=== PATIENT | male | born 1955 | race Caucasian/White ===

== ENCOUNTER 2018-03-26 09:26 | Day surgery (SDC) ==
[2018-03-26] MEDS: TETRACAINE 0.5% UNIT-DOSE OP PRN ×2 (10:20→10:44)
[2018-03-26] MEDS: BETADINE OPTH PREP OP PRN ×2 (10:20→10:44)
[2018-03-26] MEDS: CYCLOGYL 2% OPTH OP PRN ×3 (10:21→10:31)
[2018-03-26] MEDS ORDERED: DEX-MOXI-KETOR OPTH INJ 1/0.5/0.4 MG/ML IO ONE (10:30)
[2018-03-26] MEDS ORDERED: BRIMONIDINE TARTRATE 0.2% OPTH SOL OP PRN (10:30)
[2018-03-26] MEDS ORDERED: ZOFRAN 4 MG/2 ML IVP ONE (10:30)
[2018-03-26] MEDS ORDERED: LIDOCAINE 1% 20 ML MDV ID STA (10:30)
[2018-03-26] MEDS ORDERED: LIDOCAINE 1%/PHENYLEPHRINE 1.5% BSS (SURGERY) INTRAOCULA ONE (10:30)
[2018-03-26] MEDS ORDERED: BSS WITH EPINEPHRINE OP ONE (10:30)
[2018-03-26] MEDS ORDERED: SUBLIMAZE ONE (10:45)
[2018-03-26] MEDS ORDERED: ZOFRAN 4 MG/2 ML ONE (10:45)
[2018-03-26] MEDS ORDERED: VERSED ONE (10:45)
[2018-03-26 12:16] VITALS: TEMP 98.4
[2018-03-26 13:48] VITALS: BP 111/63
== END 2018-03-26 11:30 | disposition home or self-care (01) ==
LOC: SURG 09:26
PROVIDERS: ATTEND Ophthalmology
DX: H25.812 Combined forms of age-related cataract, left eye (principal)

== ENCOUNTER 2018-05-20 09:33 | Day surgery (SDC) ==
[~2018-05-20 09:33] MED LIST: BRIMONIDINE TARTRATE 0.2% OPTH SOL OP PRN; LIDOCAINE 1% 20 ML MDV ID STA; ZOFRAN 4 MG/2 ML IVP ONE
[2018-05-20] MEDS: CYCLOGYL 2% OPTH OP PRN ×3 (10:15→10:25)
[2018-05-20] MEDS: BETADINE OPTH PREP OP PRN ×2 (10:15→10:20)
[2018-05-20] MEDS: TETRACAINE 0.5% UNIT-DOSE OP PRN ×2 (10:15→10:20)
[2018-05-20] MEDS: LIDOCAINE 1%/PHENYLEPHRINE 1.5% BSS (SURGERY) INTRAOCULA ONE ×2 (10:24→10:35)
[2018-05-20] MEDS: DEX-MOXI-KETOR OPTH INJ 1/0.5/0.4 MG/ML IO ONE ×2 (10:24→10:35)
[2018-05-20] MEDS: BSS WITH EPINEPHRINE OP ONE ×2 (10:24→10:35)
[2018-05-20] MEDS ORDERED: ZOFRAN 4 MG/2 ML ONE (10:25)
[2018-05-20] MEDS ORDERED: VERSED ONE (10:25)
[2018-05-20] MEDS ORDERED: SUBLIMAZE ONE (10:25)
[2018-05-20] MEDS ORDERED: AK-DILATE 10% OPTH SOL OP PRN (11:11)
[2018-05-20 13:16] VITALS: TEMP 97.8
[2018-05-23 17:09] VITALS: BP 142/78
== END 2018-05-20 11:30 | disposition home or self-care (01) ==
LOC: SURG 09:33
PROVIDERS: ATTEND Ophthalmology
DX: H25.811 Combined forms of age-related cataract, right eye (principal)